=== PATIENT | female | born 2005 | race Caucasian/White ===

== ENCOUNTER → 2024-04-16 17:33 | Outpatient (BNVA) | payer BC, MEDICAID, SELFPAY | PROVIDERS: Family Provider Family Medicine | DX: J02.9 Acute pharyngitis, unspecified (principal) | CPT/HCPCS: 87071; 87880 ==

== ENCOUNTER 2025-04-13 16:55 | Emergency (ER) | payer BC, SELFPAY ==
--- OUTSIDE RECORDS SUMMARY | 2025-04-13 16:59 | XMS_ITS | Clinical Summary ---
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 Active ECHINACEA 1X PO Take by mouth. Active Active Problems Problem Noted Date Diagnosed Date Chronic constipation 08/13/2015 Encopresis 08/13/2015 Pyogenic granuloma of skin and subcutaneous tiss ue 07/07/2009 Immunizations Immunization Administration Dates Next Due (M-M-R II/PRIORIX)(12 MO UP) MEASLES, MUMPS AND RUBELLA VIRUS VACCINE, 0.5 ML IM/SUBCUT 12/25/2005 (VARIVAX)(12 MOS UP)VARICELL A VIRUS VACCINE (PF) 0.5 ML, SUB CUT 02/16/2009 Dt Dtp Dtap Vaccine 03/28/2006 HIB, Unspecified Formulation 03/28/2006 Pneumococcal 7-valent conjugate vaccine IM 12/25 Social History Tobacco Use Types Packs/Day Years Used Date Smoking Tobacco: Never Assessed Comments Unknown Sex and Gender Information Value Date Recorded Sex Assigned at Not on file Legal Sex Female 7:31 AM 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 Gender Identity Not on file Sexual Orientation Not on file Last Filed Vital Signs Vital Sign Reading Time Taken Comments Blood Pressure 112/68 08/04/2015 9:17 AM JOCKEY ROOM CUSTODIAN Pulse 116 07/07/2009 11:00 AM JOCKEY ROOM CUSTODIAN Temperature 36.9 C (98.4 F) 07/07/2009 10:30 AM JOCKEY ROOM CUSTODIAN Respiratory Rate 18 08/04/2015 9:17 AM JOCKEY ROOM CUSTODIAN Oxygen Saturation 98% 07/07/2009 11:00 AM JOCKEY ROOM CUSTODIAN Inhaled Oxygen Concentration - - Weight 59 kg (130 lb) 08/04/2015 9:17 AM JOCKEY ROOM CUSTODIAN Height 151.1 cm (4' 11.5 ) 08/04/2015 9:17 AM CS T Body Mass Index 25.82 08/04/2015 9:17 AM JOCKEY ROOM CUSTODIAN Plan of Treatment Health Maintenance Due Date Last Done Comments CHLAMYDIA SCREENING (ANNUAL) 11-24 YEARS 12/24/2015 HPV VACCINES (1 - 3-dose series) 12/24/2019 DTAP/TDAP/TD VACCINES (2 - Tdap) 12/24/2023 03/28/20 06 HEPATITIS B VACCINES (1 of 3 - 19+ 3-dose series) 11/2023 INFLUENZA VACCINE (#1) [address] [place] [id number] MEDICAID [place] Advance Directives For more information, please contact: [phone] * Full Code (Latest Code Status on File) Date Activated Date Inactivated Comments 07/07/2009 9:01 AM 07/07/2009 2:12 PM * Full Code Date Activated Date Inactivated Comments 07/07/2009 6:56 AM 07/07/2009 9:01 AM Care Teams Crepe Machine Operator Relationship Specialty Start Date End Date Jerilyn Mcfadden MD [address] [place] [address] PCP - General Family Practice 08/17/15
--- OUTSIDE RECORDS SUMMARY | 2025-04-13 16:59 | XMS_ITS | Clinical Summary ---
Author Organization 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 DESIGNER Gender Identity Not on file Sexual Orientation Not on file Last Filed Vital Signs Vital Sign Reading Time Taken Comments Blood Pressure 112/68 08/04/2015 9:17 AM DANCE COSTUME DESIGNER Pulse - - Temperature - - Respiratory Rate 18 08/04/2015 9:17 AM DANCE COSTUME DESIGNER Oxygen Saturation - - Inhaled Oxygen Concentration - - Weight 59 kg (130 lb) 08/04/2015 9:17 AM DANCE COSTUME DESIGNER Height 151.1 cm (4' 11.5 ) 08/04/2015 9:17 AM CS T Body Mass Index 25.82 08/04/2015 9:17 AM DANCE COSTUME DESIGNER Plan of Treatment Health Maintenance Due Date Last Done Comments CHLAMYDIA SCREENING (ANNUAL) 11-24 YEARS 12/24/2015 HPV VACCINES (1 - 3-dose series) 12/24/2019 DTAP/TDAP/TD VACCINES (2 - Tdap) 12/24/2023 03/28/20 HEPATITIS B VACCINES (1 of 3 - 19+ 3-dose series) 11/2023 INFLUENZA VACCINE (#1) 2025 Care Teams General Farmworker Relationship Specialty Start Date End Date Jerilyn Mcfadden MD [address] [place] [address] PCP - General Family Practice 08/17/15
[2025-04-13 17:05] VITALS: BP 131/88; PULSE 85; TEMP 36.8; O2SAT 99
--- NOTE | 2025-04-13 17:36 | CTR_ITS ---
PROCEDURE INFORMATION: Exam: CT Head Without Contrast Exam date and time: 04/13/2025 6:23 PM Age: 19 years old Clinical indication: Pain; Headache not specified; Additional info: Severe headache TECHNIQUE: Imaging protocol: Computed tomography of the head without contrast. Radiation optimization: All CT scans at this facility use at least one of these dose optimization techniques: automated exposure control; mA and/or kV adjustment per patient size (includes targeted exams where dose is matched to clinical indication); or iterative reconstruction. COMPARISON: No relevant prior studies available. RADIATION DOSE METRICS: Total DLP (mGy-cm): 1114.08 FINDINGS: Brain: Low-lying cerebellar tonsils. No focal parenchymal abnormality. No mass effect or midline shift. Cerebral ventricles: No ventriculomegaly. Paranasal sinuses: Visualized sinuses are unremarkable. No fluid levels. Mastoid air cells: Asymmetric pneumatization of the mastoid air cells. Bones: Unremarkable. No acute fracture. Soft tissues: Unremarkable. CT/CT head wo con* [id number] IMPRESSION: No acute intracranial abnormality. If patient's symptoms remain clinically suspicious, MRI will improve assessment for parenchymal abnormality.
[2025-04-13 17:40] VITALS: BP 127/86; PULSE 82; RESP 16; O2SAT 98
--- NOTE | 2025-04-13 17:49 | W.ED.HA ---
HPI - Headache General: Chief Complaint: Headache Stated Complaint: massive headachs sudden onset Time Seen by Provider: 04/13/25 16:59 Source: patient Mode of arrival: ambulatory Limitations: no limitations History of Present Illness: Patient is a 19-year-old female with no pertinent past medical history who reports the emerged primary complaining of headaches that have been intermittent for the past few months but most severe over the past week. States pain is primarily to the left parietal region, denies any trauma. No neurological deficits are reported, no visual changes, difficulty walking, nausea or vomiting, dizziness or lightheadedness, or syncopal episodes. Mother in the room states that she personally has a history of aneurysm and stroke and she is concerned that the patient might be exhibiting symptoms of this with her headache. She has not sought evaluation for this with primary care, however has an appointment early next week. Has been taking Tylenol with no relief, however states pain at this time is not as severe. States that there is no specific temporal pattern though does note that it is improved in the morning and worse at night most often. No diagnosis of migraines. MD elicited complaint: headache Onset (ago): month(s) Location: left and parietal Severity: similar to previous episodes Quality & Timing: sharp, intermittent and similar to previous headaches Exacerbating factors: none Relieving factors: nothing Associated symptoms: Deny chest pain, fever(s), lightheadedness, nausea, rash or vomiting Treatments prior to arrival: acetaminophen Related Data Home Medications ?Medication ?Instructions ?Recorded ?Confirmed No Known Home Medications 04/16/24 04/16/24 Allergies Allergy/AdvReac Type Severity Reaction Status Date / Time doxycycline Allergy Unknown Verified 04/13/25 17:10 Review of Systems General: Reports: 10 or more systems reviewed and unremarkable except in HPI and below Const: Denies: fever(s), chills or fatigue Eyes: Denies: change in vision ENMT: Denies: throat pain, ear or mastoid pain or nasal discharge Card: Denies: chest pain, palpitations, swelling of feet/ankles or lightheadedness Resp: Denies: dyspnea, productive cough or wheezing GI: Denies: abdominal pain, nausea, vomiting, diarrhea or constipation : Denies: flank pain, difficulty voiding, dysuria or urinary frequency Musc: Denies: neck pain, back pain or joint pain Skin/Breast: Denies: rash Neuro: Reports: headache(s); Denies: numbness in extremities, weakness in extremities, difficulty walking, dizziness or behavioral changes PFSH ED PFSH: Social History Smoking and tobacco/nicotine status: unknown if used tobacco/nicotine Physical Exam Const: COMMON NORMALS: no acute distress, patient oriented x3 and no limitations GENERAL APPEARANCE: cooperative, comfortable and well developed ORIENTATION/CONSCIOUSNESS: Yes awake, Yes oriented to person, Yes oriented to place and Yes oriented to time HENMT: COMMON NORMALS: normocephalic, atraumatic and hearing grossly normal bilaterally HEAD & SCALP: normocephalic and atraumatic Eye: COMMON NORMALS: EOMs intact bilaterally and conjunctivae normal CONJUNCTIVA: Yes conjunctivae normal OTHER: Eyes track midline, right sided anisocoria. Reactive pupils. Neck/C-Spine: COMMON NORMALS: full ROM, supple and no JVD Resp: COMMON NORMALS: normal respiratory effort, No retractions, No use of accessory muscles and clear to auscultation bilaterally AUSCULTATION: clear to auscultation bilaterally Cardio: COMMON NORMALS: no JVD, regular rate, regular rhythm, No clicks present (Cardio), No murmurs present (Cardio) and No rub (Cardio) RATE: regular rate RHYTHM: regular rhythm Extremity: COMMON NORMALS: normal to inspection, full ROM and capillary refill normal Neuro: COMMON NORMALS: patient oriented x3, CN's II-XII intact bilaterally, moves all extremities, no focal motor deficits and no sensory deficits noted SENSORIUM/ORIENTATION: Yes oriented to person, Yes oriented to place and Yes oriented to time COORDINATION/BALANCE: [id number]-[id number] test normal and [id number] test normal SPEECH: speech normal GAIT: Yes Normal gait present MOTOR EXAM: 5/5 motor strength present throughout, Pronator motor function not present, no tremor noted, no asterixis, Motor fasciculations not present and Normal motor muscle tone present throughout COORDINATION: [id number] test normal and [id number] test normal Psych: COMMON NORMALS: mental status grossly normal and Normal thought process present THOUGHT PROCESS: Normal thought process present Skin: COMMON NORMALS: no rashes or lesions noted GENERAL SKIN EXAM: no rashes or lesions noted Course Vital Signs: Vital signs: Vital Signs Temperature 98.2 F 04/13/25 17:05 Pulse Rate 85 04/13/25 18:30 Respiratory Rate 16 04/13/25 18:10 Blood Pressure 121/85 04/13/25 18:10 Pulse Oximetry 100 04/13/25 18:30 Oxygen Delivery Me thod Room Air 04/13/25 18:30 MDM - Headache Medical Decision Making This patient presented with a headache that has been intermittent for months, stating she was just wearing to make sure that not serious was going on. Neurologically intact on exam. Head CT unremarkable for any intracranial abnormality. With her monitored here in the emergency department and no incidences of pain or neurological issues, stable for discharge home and this is likely benign headache etiology. She has upcoming appointment with primary care for which she will receive further outpatient eval and she is given strict return precautions in the meantime. Lab Data Radiology Impressions Head CT 04/13/25 17:36 IMPRESSION: No acute intracranial abnormality. If patient's symptoms remain clinically suspicious, MRI will improve assessment for parenchymal abnormality. All radiology interpretation(s) finalized by discharge Discharge Plan Discharge Patient Disposition: Home Clinical Impression: Migraine Qualifiers: Migraine type: unspecified Status migrainosus presence: with status migrainosus Intractability: intractable Qualified Code(s): G43.911 - Migraine, unspecified, intractable, with status migrainosus Condition: Stable Prescriptions: No Action No Known Home Medications Discharge Orders: Discharge ED (Routine); Ordered 04/13/25 Ordered By: Avel Dumont Referrals: Jerilyn Mcfadden MD [Family Provider, Family Practice] Patient Instructions: Patient Portal & [facility]or Instructions Activity Restrictions/Additional Instructions: Headache Discharge Instructions Diagnosis and Imaging: - The patient is a 19-year-old female with a history of bothersome headaches, most consistent with migraine, but other benign etiologies (e.g., tension-type headache) remain possible. - Neurological examination was normal. - Non-contrast CT head showed no mass, hemorrhage, or other acute abnormality, consistent with guidelines that recommend imaging only in the presence of red flag symptoms or abnormal examination. Acute Management: - The patient declined pain medications during the visit and is currently asymptomatic. - For future acute headache episodes, first-line options include acetaminophen (1000 mg), NSAIDs such as naproxen sodium (550 mg), or ibuprofen (400?800 mg), taken at the onset of headache. - If these are ineffective, triptans (e.g., sumatriptan 50?100 mg, eletriptan 40 mg) may be considered, provided there are no contraindications such as cardiovascular disease. - Opioid analgesics are not recommended due to risk of medication overuse headache and abuse. - Adjunctive antiemetics (e.g., metoclopramide) may be used if nausea is present. Lifestyle and Nonpharmacologic Measures: - Maintain regular sleep, hydration, and meal schedules; avoid known dietary triggers (e.g., caffeine excess, alcohol, certain foods). - Keep a headache diary to track frequency, duration, and possible triggers, which can assist in future management decisions. - Behavioral therapies (e.g., cognitive behavioral therapy, mindfulness, biofeedback) may reduce attack frequency and disability, especially for those preferring nondrug options. Follow-Up and Preventive Therapy: - The patient has a scheduled follow-up with primary care early next week. - If headaches are frequent (>= migraine days/month) or disabling despite acute therapy, preventive options may be considered, including beta-blockers, candesartan, tricyclic antidepressants, anticonvulsants (topiramate, divalproex sodium), or onabotulinumtoxinA for chronic migraine. - Preventive therapy selection should be individualized based on comorbidities and side effect profiles. Warning Signs and When to Seek Immediate Care: - Seek immediate medical attention for any of the following: - Sudden, severe ( thunderclap ) headache - New neurological symptoms (e.g., weakness, vision changes, confusion) - Fever, neck stiffness, or signs of infection - Headache triggered by exertion or positional change - Headache with vomiting not explained by migraine Summary: - The current presentation is consistent with a benign primary headache disorder. - No acute intracranial pathology was identified. - Symptomatic management and lifestyle modification are recommended. - Follow-up is scheduled for reassessment and consideration of preventive therapy if indicated. Print Language: Swedish Coding Level of Care Code ED List Of First Job Ideas for Mina Santiago
[2025-04-13 18:10] VITALS: BP 121/85; PULSE 82; RESP 16; O2SAT 98
[2025-04-13 18:30] VITALS: PULSE 85; O2SAT 100
[2025-04-13 19:46] VITALS: BP 89/73; PULSE 96; O2SAT 96
== END 2025-04-13 20:05 | disposition home or self-care (01) ==
PROVIDERS: Emergency Provider Physician Assistant
DX: G43.911 Migraine, unspecified, intractable, with status migrainosus (principal)
CPT/HCPCS: 70450; 99284; J7040